=== PATIENT | female | born 1985 | race Caucasian/White ===

== ENCOUNTER 2016-11-22 13:40 | Emergency (ER) | payer OTHER ==
[2016-11-22 16:47] LABS: HEMOGLOBIN 13.6 gm/dl (12.3-15.3); RED BLOOD COUNT 4.46 M/UL (4.00-5.10); WHITE BLOOD COUNT 4.6 K/UL (4.5-11.0)
[2016-11-22 17:35] LABS: BUN/CREATININE RATIO 13 (0-10)
== END 2016-11-22 20:30 | disposition home or self-care (01) ==
LOC: ER1 13:40
PROVIDERS: Family Medicine
DX: R55 Syncope and collapse (principal); S13.4XXA Sprain of ligaments of cervical spine, initial encounter; S33.5XXA Sprain of ligaments of lumbar spine, initial encounter; S46.912A Strain of unspecified muscle, fascia and tendon at shoulder and upper arm level, left arm, initial encounter; S46.911A Strain of unspecified muscle, fascia and tendon at shoulder and upper arm level, right arm, initial encounter; S96.912A Strain of unspecified muscle and tendon at ankle and foot level, left foot, initial encounter; R07.9 Chest pain, unspecified; E87.6 Hypokalemia; G40.909 Epilepsy, unspecified, not intractable, without status epilepticus; Z79.899 Other long term (current) drug therapy; V49.9XXA Car occupant (driver) (passenger) injured in unspecified traffic accident, initial encounter; Y93.89 Activity, other specified; Y92.410 Unspecified street and highway as the place of occurrence of the external cause
CPT/HCPCS: 70450; 71260; 72125; 73030; 73630; 80053; 82550; 82553; 83874; 84484; 84703; 85025; 93005; 96374; 99284; J2405; J7030; J7050; Q9962

== ENCOUNTER 2020-08-19 11:33 | Emergency (ER) | payer OTHER ==
[~2020-08-19 11:33] MED LIST: ALDACTONE 25MG25 MG PO; ALDACTONE25 MG PO; AUGMENTIN 875-1 EACH PO; BUMEX 1MG TABLET1 MG GT; BUMEX 1MG TABLET1 MG PO; CELEXA40 MG PO; CLEOCIN HCL300 MG PO; FELDENE10 MG PO; GLUCOPHAGE500 MG PO; K-DUR TAB 20 M20 MEQ PO; LAMICTAL100 MG PO; LASIX40 MG PO; NEXIUM40 MG PO; PATIENT'S OWN MEDICA PO; TOPROL XL50 MG PO; VIMPAT100 MG PO; Viscous Lidocaine 2%; ZAROXOLYN/DIUL2.5 MG PO; ZOFRAN ODT 4 MG4 MG PO; ZYRTEC10 MG PO
[2020-08-19 12:04] LABS: HEMOGLOBIN 14.2 gm/dl (12.3-15.3); RED BLOOD COUNT 4.55 M/UL (4.00-5.10); WHITE BLOOD COUNT 5.3 K/UL (4.5-11.0)
[2020-08-19 12:39] LABS: BUN/CREATININE RATIO 14 (0-10)
[2020-08-19] MEDS ORDERED: ZOFRAN4 MG PO (13:43)
[2020-08-19] MEDS ORDERED: K-DUR TAB 20 M20 MEQ PO (13:43)
== END 2020-08-19 16:30 | disposition home or self-care (01) ==
LOC: ER1 11:33
PROVIDERS: Emergency Medicine
DX: E87.6 Hypokalemia (principal); E86.0 Dehydration; E11.9 Type 2 diabetes mellitus without complications; I10 Essential (primary) hypertension; J45.909 Unspecified asthma, uncomplicated; Z88.5 Allergy status to narcotic agent; Z88.6 Allergy status to analgesic agent; Z79.899 Other long term (current) drug therapy; Z88.8 Allergy status to other drugs, medicaments and biological substances
CPT/HCPCS: 71045; 80053; 81001; 82550; 82553; 83874; 84439; 84443; 84484; 84703; 85025; 87086; 93005; 96374; 99284; J2405; J7030

== ENCOUNTER 2020-12-31 16:51 | Emergency (ER) | payer OTHER ==
[~2020-12-31 16:51] MED LIST changes: +ZOFRAN4 MG PO
[2020-12-31 17:47] LABS: HEMOGLOBIN 14.4 gm/dl (12.3-15.3); RED BLOOD COUNT 4.58 M/UL (4.00-5.10)
[2020-12-31 18:10] LABS: BUN/CREATININE RATIO 16 (0-10)
== END 2020-12-31 19:08 | disposition home or self-care (01) ==
LOC: ER1 16:51
PROVIDERS: Student in an Organized Health Care Education/Training Program
DX: R25.1 Tremor, unspecified (principal); R42 Dizziness and giddiness; E11.9 Type 2 diabetes mellitus without complications; I10 Essential (primary) hypertension; G43.909 Migraine, unspecified, not intractable, without status migrainosus; Z79.84 Long term (current) use of oral hypoglycemic drugs; Z87.891 Personal history of nicotine dependence
CPT/HCPCS: 71045; 80053; 82550; 82553; 83874; 84484; 85025; 93005; 99284

== ENCOUNTER → 2021-04-19 | Outpatient (CLI) | payer OTHER | LOC: US 04-16 11:00 → ECHO 04-16 11:45 → US 04-24 09:30 | DX: R01.1 Cardiac murmur, unspecified (principal); R10.2 Pelvic and perineal pain | CPT/HCPCS: ECHO; 76830; 93306 ==

== ENCOUNTER 2021-07-07 10:21 | Emergency (ER) | payer OTHER ==
[2021-07-07 11:44] LABS: HEMOGLOBIN 15.6 gm/dl (12.3-15.3); RED BLOOD COUNT 5.08 M/UL (4.00-5.10); WHITE BLOOD COUNT 5.5 K/UL (4.5-11.0)
[2021-07-07 12:10] LABS: BUN/CREATININE RATIO 17 (0-10)
[2021-07-07] MEDS ORDERED: IMODIUM CAP 2 MG2 MG PO (13:02)
== END 2021-07-07 13:19 | disposition home or self-care (01) ==
LOC: ER1 10:21
PROVIDERS: Physician Assistant
DX: E86.0 Dehydration (principal); B97.4 Respiratory syncytial virus as the cause of diseases classified elsewhere; I10 Essential (primary) hypertension; Z88.2 Allergy status to sulfonamides; Z88.6 Allergy status to analgesic agent; Z20.822 Contact with and (suspected) exposure to COVID-19
CPT/HCPCS: 0240U; 80053; 81001; 85025; 96374; 99284; J2405